=== PATIENT | female | born 1980 | race Caucasian/White ===

== ENCOUNTER 2018-04-19 10:23 | Emergency (ER) | payer BC | END 2018-04-19 11:28 | disposition home or self-care (01) | LOC: ERS 10:23 | DX: K04.7 Periapical abscess without sinus (principal); F17.210 Nicotine dependence, cigarettes, uncomplicated | CPT/HCPCS: 99282 ==

== ENCOUNTER 2021-03-05 09:01 | Outpatient (CLI) | payer BC | END 2021-03-05 09:02 | disposition home or self-care (01) | LOC: TBSIIMAG 09:01 | PROVIDERS: ATTEND Physician Assistant | DX: R22.41 Localized swelling, mass and lump, right lower limb (principal); S86.911A Strain of unspecified muscle(s) and tendon(s) at lower leg level, right leg, initial encounter ==

== ENCOUNTER 2024-05-07 09:57 | Outpatient (CLI) | payer BC | END 2024-05-07 09:58 | disposition home or self-care (01) | LOC: BICMAMMO 09:57 | PROVIDERS: ATTEND Physician Assistant | DX: R92.8 Other abnormal and inconclusive findings on diagnostic imaging of breast (principal) ==